=== PATIENT | female | born 1975 | race Caucasian/White ===

== ENCOUNTER 2019-07-17 | Emergency (ER) | payer SELFPAY ==
[2019-07-17] MEDS ORDERED: PROZAC20 MG PO (21:14)
[2019-07-17] MEDS ORDERED: LITHIUM CARB300 MG PO (21:15)
[2019-07-17] MEDS ORDERED: METFORMIN500 MG PO (21:16)
[2019-07-17 22:11] LABS: URINE BILIRUBIN - DIPSTICK NEGATIVE (NEGATIVE); URINE BLOOD DIPSTICK TRACE-INTACT (NEGATIVE); URINE COLOR YELLOW; URINE GLUCOSE - DIPSTICK NEGATIVE (NEGATIVE); URINE KETONE NEGATIVE (NEGATIVE); URINE LEUK ESTERASE TRACE (NEGATIVE); URINE NITRITE - DIPSTICK NEGATIVE (Negative); URINE PROTEIN - DIPSTICK 100 mg/dL (NEG-TRACE); URINE SPECIFIC GRAVITY >=1.030
[2019-07-17 22:13] LABS: BARBITURATES NEGATIVE (NEGATIVE); COCAINE NEGATIVE (NEGATIVE); METHADONE NEGATIVE (NEGATIVE); OXCYCODONE NEGATIVE (NEGATIVE); TETRAHYDROCANNABIONOL NEGATIVE (NEGATIVE); TRICYLIC ANTIDEPRESSANTS NEGATIVE (NEGATIVE)
[2019-07-17 22:22] LABS: URINE SQUAMOUS EPITHELIAL CELL MODERATE EPI/hpf (0-FEW)
[2019-07-17] MEDS ORDERED: TAM75CAP PO (23:58)
== END 2019-07-18 00:15 | disposition home or self-care (01) | DRG 153 ==
PROVIDERS: Emergency Medicine
DX: J11.1 Influenza due to unidentified influenza virus with other respiratory manifestations (principal); F19.10 Other psychoactive substance abuse, uncomplicated; E11.9 Type 2 diabetes mellitus without complications; Z79.84 Long term (current) use of oral hypoglycemic drugs

== ENCOUNTER 2019-07-18 11:17 | Emergency (ER) | payer SELFPAY ==
[~2019-07-18 11:17] MED LIST: LITHIUM CARB300 MG PO; METFORMIN500 MG PO; PROZAC20 MG PO; TAM75CAP PO
[2019-07-18 11:30] VITALS: BP 183/92
== END 2019-07-18 11:36 | disposition left against medical advice (07) | DRG 951 ==
LOC: ED 11:17 → LWOBS 11:35 → ED 11:35 → LWOBS 11:36
DX: Z53.21 Procedure and treatment not carried out due to patient leaving prior to being seen by health care provider (principal)

== ENCOUNTER 2019-09-25 | Emergency (ER) | payer SELFPAY ==
[2019-09-25 06:16] LABS: URINE BILIRUBIN - DIPSTICK SMALL (NEGATIVE); URINE BLOOD DIPSTICK LARGE (NEGATIVE); URINE COLOR YELLOW; URINE GLUCOSE - DIPSTICK NEGATIVE (NEGATIVE); URINE KETONE NEGATIVE (NEGATIVE); URINE LEUK ESTERASE NEGATIVE (NEGATIVE); URINE PH 5.5 (4.5-8.0); URINE PROTEIN - DIPSTICK 100 mg/dL (NEG-TRACE); URINE SPECIFIC GRAVITY >=1.030; URINE UROBILINOGEN - DIPSTICK 0.2 E.U./dL (0.2)
[2019-09-25 06:28] LABS: URINE NITRITE - DIPSTICK NEGATIVE (Negative)
[2019-09-25 06:29] LABS: URINE BACTERIA MODERATE hpf; URINE EPITHELIAL CELLS MODERATE EPI/hpf (0-FEW); URINE RBC 25-50 RBC/hpf (0-5)
[2019-09-25] MEDS ORDERED: METRONIDAZOL500 MG PO (06:33)
[2019-09-25] MEDS ORDERED: MONISTAT1 VA (06:33)
[2019-09-25] MEDS ORDERED: BACTRIM DS1 TAB PO (06:33)
== END 2019-09-25 06:45 | disposition home or self-care (01) | DRG 758 ==
PROVIDERS: Emergency Medicine
DX: A59.01 Trichomonal vulvovaginitis (principal); B37.3 Candidiasis of vulva and vagina; N39.0 Urinary tract infection, site not specified; E11.9 Type 2 diabetes mellitus without complications